=== PATIENT | male | born 1950 | race Caucasian/White ===

== ENCOUNTER 2024-08-10 07:17 | Inpatient (IN) | payer OTHER, MEDICARE ==
[~2024-08-10] VITALS: Ht 175.3 cm; Wt 66.0 kg
[2024-08-10 07:54] LABS: MEAN PLATELET VOLUME 7.1 FL (7.4-10.4); RED CELL DISTRIBUTION WIDTH 13.6 % (11.5-14.5)
[2024-08-10 08:02] LABS: LEUKOCYTE ESTERASE ,URINE TRACE (Neg); NITRITES, URINE NEGATIVE (Neg); OCCULT BLOOD,URINE MODERATE (Neg)
--- NOTE | 2024-08-10 08:07 | Physician Documentation ---
History of Present Illness Chief Complaint: Flank Pain Stated Complaint: ABD PAIN Time Seen by MD: 08:06 OK to notify your PCP?: Yes Source: patient, RN/MD, RN notes reviewed Mode of Arrival: Ambulatory Exam Limitations: no limitations HPI This pleasant 74-year-old states he has been having some right flank pain back pain for about two days. The patient fell about three days ago but did not recall hurting himself and was soft fall. But coincidentally started having severe pain. He does have a history of kidney stones in the past. The patient states his pain is nonradiating not necessarily associated with movement. Denies any dysuria or frequency no radiation of his pain. It is more of an ache pressure type of sensation. Had some difficulty sleeping last night was concerned came in for evaluation. He has been taking some Tylenol for his pain takes a daily aspirin. Patient is otherwise in good health has no other complaints at this time. Medication Reconciliation Allergies: Coded Allergies: No Known Allergies (Unverified , 08/10/24) Past Medical History Past Medical History: Seizures Past Surgical History: abdominal surgery Smoking Status: Former smoker Alcohol Use: Sober Drug Use: none Review of Systems All Other Systems at this time: Reviewed and Negative Physical Exam Vital Signs: RN Vital Signs have been reviewed: Yes, Temperature: 98.7, Source: Temporal, Heart Rate: 85, Respiratory Rate: 15, BP: 132/76, Pulse Oximetry: 97, Weight: 66.200 Oxygen Flow Rate: 0 Physical Exam General: The patient is well developed, well nourished, nontoxic appearing and is in no acute distress. Skin: [place], warm and dry with no rashes. HEENT: Head was normocephalic and atraumatic. Eyes - pupils equal, round, reactive to light and accommodation. Extraocular movements were intact. Conjunctivae were nonicteric. The mouth and oropharynx were clear with moist mucous membranes. Neck: Supple and nontender. There was no jugular venous distention, Chest: Clear to auscultation bilaterally without wheezes, rales or rhonchi. No accessory muscle use. Heart: Rate regular and rhythmic. S1, S2. No murmurs. Palpation of the chest wall was normal. Back: Diffuse right paraspinal lumbar tenderness CVA tenderness mild no point tenderness on the spine Abdomen: Soft, nontender and nondistended. Positive bowel sounds. No guarding or rebound. Extremities: No cyanosis, clubbing or edema. The patient moves all extremities. Pulses were equal and symmetric. Neurologic: Motor sensory grossly intact Psychologic: The patient was oriented to person, place and time. The patient demonstrated appropriate judgement and insight. Progress Progress Note 0950: The case was discussed with Dr. Davila who was informed on the patient and agreed to see him if patient shows signs of decompensation and to give him a call in the evening. 0958: The case was discussed with Dr. Armas who was informed on the patients case and kindly agreed to admission. Results/Orders Reviewed/noted all lab results: Yes Results/Orders Orders - PETER GRIJALVA MD Urinalysis, Cult If Indicated (08/10/24 07:27) Lipase (08/10/24 07:27) CMP (08/10/24 07:27) Completed Orders - PETER GRIJALVA MD Cbc/Diff (08/10/24 07:27) Vital Signs 08/10/24 08/10/24 08/10/24 07:24 07:40 07:41 Temp 98.7 Pulse 90 85 Resp 18 15 15 B/P (MAP) 134/75 132/76 (94) Pulse Ox 97 97 O2 Flow Rate 0 Laboratory Tests Test 08/10/24 07:30 08/10/24 07:45 Urine Comment White Blood Count 11.9 H Red Blood Count 4.17 L Hemoglobin 12.3 L Hematocrit 37.2 L Mean Corpuscular Volume 89.3 Mean Corpuscular Hemoglobin 29.6 Mean Corpuscular Hemoglobin Concent 33.1 Red Cell Distribution Width 13.6 Platelet Count 441 H Mean Platelet Volume 7.1 L Neutrophils (%) (Auto) 77.0 H Lymphocytes (%) (Auto) 9.6 L Monocytes (%) (Auto) 12.1 H Eosinophils (%) (Auto) 0.6 Basophils (%) (Auto) 0.7 Neutrophils # (Auto) 9.2 H Lymphocytes # (Auto) 1.2 Monocytes # (Auto) 1.4 H Eosinophils # (Auto) 0.1 Basophils # (Auto) 0.1 CBC Comment Chemistry Comments Re-Evaluation Re-Evaluation : Re-Evaluation: Improved Progress Patient was seen and examined. Patient is given reassurance. Patient is well appearing comfortable but is having some right flank pain. Patient denies any chills or rigors. Patient's workup showed a leukocytosis with a WBC of 11.9 left shift of 77 neutrophils. Chemistry also had some prerenal dehydration or chronic renal insufficiency. BUN is 28 creatinine is 1.58 GFR is 43. However patient has a urinalysis showing moderate blood with trace leukocyte esterase 3- 10 RBCs 5-10 WBCs which is concerning for urinary tract infection. Cat scans showed obstructive uropathy on the right side. Because of infection and obstructive uropathy patient will be admitted given IV antibiotics. Also received sildenafil to help dilate the muscles at the UVJ and hopefully the stone will pass. I discussed the case with Urology who felt patient should pa ssed the stone and should be managed medically if the patient decompensates he is more than happy to see the patient but does not anticipate that to be the situation. Patient received antibiotics fluids hospitalist was called for admission. Continuous cardiac catheterization technician interpretation shows normal sinus rhythm heart rate 90s, no ectopy, normal, my interpretation. Pulse oximetry monitor interpretation shows normal oxygenation at 97% room air, normal, my interpretation. EKG/XRAY/CT/US/VASC/MRI CT : Impression Exam: CT CT ABDOMEN PELVIS History: ABD PAIN right flank right back pain Comparison Study: None Technique: Multidetector spiral CT of the abdomen was performed from lung bases to pubic symphysis. Imaging was performed without IV contrast. Axial, coronal and sagittal multiplanar reformats were obtained from the axial data set by the technologist. Radiation Dose : 1. Abdomen/Pelvis: CTDIvol 9.2 mGy, DLP 498 mGy*cm. Findings: Evaluation of solid organs is limited due to lack of intravenous contrast use. Lung Bases: Cardiomegaly. Coronary artery calcifications. Vascular calcifications of the aorta. Liver: Hepatic steatosis. Hepatomegaly. Gallbladder and Biliary Tree: Unremarkable Spleen: Unremarkable Pancreas: The pancreas is grossly normal in appearance. Adrenal Glands: Unremarkable Kidneys: Few right renal cysts are present. Left kidney is unremarkable. Mild to moderate right hydroureteronephrosis. Bladder: 0.2 cm stone at the right UVJ likely just entering the bladder. Bowel: The stomach is grossly normal in appearance. Large volume stool in the sigmoid colon. The appendix is not visualized; however, no secondary findings of acute appendicitis identified. Ascites: Absent Lymphadenopathy: No mesenteric, retroperitoneal or periportal lymphadenopathy. Abdominal Wall and Mesentery: Unremarkable. Vasculature: The visualized abdominal aorta is normal in size and caliber. There is extensive atherosclerotic calcification of the aorta and its branches. Evaluation of abdominal and pelvic vessels is limited due to lack of intravenous contrast. Pelvic Organs: Unremarkable Musculoskeletal: No aggressive focal bony lesions, acute fractures or dislocation. IMPRESSION: Mild to moderate right hydroureteronephrosis. 0.2 cm stone at the right UVJ likely just entering the urinary bladder. Large volume stool in the sigmoid colon. Hepatomegaly. Electronically Signed by:ZAHEER GALE MD Date & Time: 08/10/24 0906 Medical Decision Making Additional info obtained from: old records Differential Dx:Considerations: Include: Esophagitis, Gastritis/PUD, Gastroenteritis, GI hemorrhage, Hernia, Hepatitis, Inflammatory BD, Ischemic bowel, Pancreatitis, Urinary obstruction, Urinary tract infection, Urolithiasis, Other Departure Time of Disposition: 09:59 Disposition: 09 ADMITTED INPATIENT Admitted to Inpatient Unit: yes, to hospitalist Impression: Primary Impression: UTI (urinary tract infection) Additional Impressions: Hydronephrosis, right Renal colic Condition: Fair Referrals: NO PRIMARY CARE PROVIDER (PCP) Education Educated: Patient Educated regarding: diagnosis, need for follow up Signature Scribe Signature: Scribed for Peter Grijalva MD by Lana Calderon . 08/10/24 09:12 (progress/ departure) Attestation: The note accurately reflects work and decisions made by me.Peter Grijalva MD 08/10/24 08:07 PETER GRIJALVA MD Aug 10, 2024 08:07 LANA ARIZA Aug 10, 2024 09:11
[2024-08-10 08:08] LABS: CREATININE 1.58 MG/DL (0.60-1.10); TOTAL CARBON DIOXIDE 25.2 MMOL/L (24-32); eCRCL 38 ML/MIN; eGFR 43 ML/MIN
[2024-08-10 08:08] LABS: UA COLLECTION TYPE CLN CATCH MIDSTREAM
[2024-08-10 08:10] LABS: MUCUS STRANDS FEW /LPF (Neg); SQUAMOUS EPITHELIAL CELL,UR FEW /LPF (FEW)
[2024-08-10] MEDS: ketorolac trometh 15mg/ml vial 15 MG/ML ML IV ONE (08:35)
[2024-08-10] MEDS: normal saline 1000ML IV soln IVB ONE (08:35)
--- NOTE | 2024-08-10 09:09 | RADIOLOGY REPORT ---
Exam: CT CT ABDOMEN PELVIS History: ABD PAIN right flank right back pain Comparison Study: None Technique: Multidetector spiral CT of the abdomen was performed from lung bases to pubic symphysis. I maging was performed without IV contrast. Axial, coronal and sagittal multiplanar reformats were obta ined from the axial data set by the technologist. Radiation Dose : 1. Abdomen/Pelvis: CTDIvol 9.2 mGy, DLP 498 mGy*cm. Findings: Evaluation of solid organs is limited due to lack of intravenous contrast use. Lung Bases: Cardiomegaly. Coronary artery calcifications. Vascular calcifications of the aorta. Liver: Hepatic steatosis. Hepatomegaly. Gallbladder and Biliary Tree: Unremarkable Spleen: Unremarkable Pancreas: The pancreas is grossly normal in appearance. Adrenal Glands: Unremarkable Kidneys: Few right renal cysts are present. Left kidney is unremarkable. Mild to moderate right hydr oureteronephrosis. Bladder: 0.2 cm stone at the right UVJ likely just entering the bladder. Bowel: The stomach is grossly normal in appearance. Large volume stool in the sigmoid colon. The appe ndix is not visualized; however, no secondary findings of acute appendicitis identified. Ascites: Absent Lymphadenopathy: No mesenteric, retroperitoneal or periportal lymphadenopathy. Abdominal Wall and Mesentery: Unremarkable. Vasculature: The visualized abdominal aorta is normal in size and caliber. There is extensive athero sclerotic calcification of the aorta and its branches. Evaluation of abdominal and pelvic vessels is limited due to lack of intravenous contrast. Pelvic Organs: Unremarkable Musculoskeletal: No aggressive focal bony lesions, acute fractures or dislocation. IMPRESSION: Mild to moderate right hydroureteronephrosis. 0.2 cm stone at the right UVJ likely just entering the urinary bladder. Large volume stool in the sigmoid colon. Hepatomegaly.
[2024-08-10] MEDS: CefTRIAXone 2gm/D5W 50ml BAG 50 ML IV ONE (09:22)
[2024-08-10] MEDS ORDERED: magnesium sulf-water 2g/50mL 50 ML IV PRN (11:05)
[2024-08-10] MEDS ORDERED: potassium Cl 20 mEq SR tablet PO PRN (11:05)
[2024-08-10] MEDS ORDERED: ondansetron/PF 4mg/2ml inj IV PRN (11:05)
[2024-08-10] MEDS ORDERED: mag hydrox/Alum hydrox/simeth 30ml oral suspension PO PRN (11:05)
[2024-08-10] MEDS ORDERED: magnesium sulf-water 4G/100mL 100 ML IV PRN (11:05)
[2024-08-10] MEDS ORDERED: potassium Cl 40MEQ/1/2NS 520ml 520 ML IV PRN (11:05)
[2024-08-10] MEDS ORDERED: magnesium Cl slow-release 64mg tablet PO PRN (11:05)
[2024-08-10] MEDS: normal saline 1000ml 1,000 ML IV SCH (11:33)
--- NOTE | 2024-08-10 13:59 | HISTORY AND PHYSICAL-Residence ---
History & Physical Providers to CC Resident Creating Document: KADI CONNOR RES ~ History of Present Illness Reason for Admit\Complaint: Pain in the right flank for 3 days History of Present Illness This is a 74 year-old male patient with a history of 3 days of severe right flank pain that worsened today. The pain is constant and associated with urinary urgency, without radiation, not improved with Tylenol. Patient denies fever, chills, dysuria, nausea, vomiting or diarrhea, with no other complaints. At this moment patient does not have any pain after being medicated. I have discussed that advanced care planning with the patient, who decides to be a DNR. The patient is retired and lives alone, able to perform after activity of the life. Physical exam: General: The patient is well developed, well nourished, nontoxic appearing and is in no acute distress. Skin: [place], warm and dry with no rashes. HEENT: Head was normocephalic and atraumatic. Eyes - pupils equal, round, reactive to light and accommodation. Extraocular movements were intact. Conjunctivae were nonicteric. The mouth and oropharynx were clear with moist mucous membranes. Neck: Supple and nontender. There was no jugular venous distention, Chest: Clear to auscultation bilaterally without wheezes, rales or rhonchi. No accessory muscle use. Heart: Rate regular and rhythmic. S1, S2. No murmurs. Palpation of the chest wall was normal. Back: Diffuse right paraspinal lumbar tenderness. CVA tenderness elicited on physical examination. Abdomen: Soft, nontender and mildly distended. Positive bowel sounds. No guarding or rebound. Extremities: No cyanosis, clubbing or edema. The patient moves all extremities. Pulses were equal and symmetric. Neurologic: Motor sensory grossly intact Psychologic: The patient was oriented to person, place and time. The patient demonstrated appropriate judgement and insight. Allergies: Coded Allergies: No Known Allergies (Unverified , 08/10/24) Past Medical History Past Medical History Seizures in the past - now controlled with medication Past Surgical History Surgical History Comment Splenectomy about 25 years ago Past Social History Smoking: Quit greater than 1 year (Patient used to smoke 2 packs a day and consume alcohol daily for approximately 30 years, stopped 25 years ago) Alcohol Use: None Drug Use: None Lives with: Alone Lives In: Home Occupation: retired ROS All Other Systems: Reviewed and Negative Gastrointestinal: Reports: abdominal pain, diarrhea (occasional diarrhea, not present at the moment) Genitourinary: Reports: frequency Exam Vitals: Vital Signs Date Time Temp Pulse Resp B/P (MAP) Pulse Ox O2 Delivery O2 Flow Rate FiO2 08/10/24 12:49 68 15 129/80 (96) 98 08/10/24 07:24 98.7 0 Diagnostic Data Last Recorded Lab Results: 08/10/24 0745 08/10/24 0745 Counseling Services Smoking & Tobacco Cessation: 3-10 Minutes (Patient instructed to abstainfrom tobacco and alcohol consumption) Advance Care Planning Advanced Care plannin - 30 Minutes (Advanced care planning discussed with the patient that decides to be DNR) Problems: (1) Hydronephrosis, right Status: Acute (2) UTI (urinary tract infection) Status: Acute Assessment & Plan: Distal ureterolithiasis 0.2 stone at the UVJ entering the bladder Case discussed it with Urology in the emergency department, no procedure recommended at this time We will start tamsulosin 0.4 mg daily Pain medication p.r.n. Acute kidney injury Right hydronephrosis due to ureteral stone BUN 28, creatinine 1.58 Hydration with NS at 100 mL/hr Monitor renal function Urinary tract infection Urine positive for occult blood, leukocyte esterase and WBC Ceftriaxone 1 g daily Follow-up urine culture Code Status: DNR DVT prophylaxis: Heparin Analgesia/sedation: Morphine Line/tube: PIV GI prophylaxis: None Nutrition: Regular diet Prognosis: Guarded Disposition: Continue medical management. Date of Service: Aug 10, 2024 Billing Provider: MESHA RAVI MD Common Visit Codes: [id number] INP/OBS CARE (HIGH) Secondary Visit Codes: [id number] CARE PLAN 30 MINUTES Problem Qualifiers (1) UTI (urinary tract infection): Urinary tract infection type: acute pyelonephritis Qualified Codes: N10 - Acute pyelonephritis KADI CONNOR, JOSE Aug 10, 2024 13:59 MESHA RAVI MD Aug 11, 2024 17:48
[2024-08-10 17:10] VITALS: BP 171/82; PULSE 68; RESP 18; TEMP 97.7; O2SAT 100
[2024-08-10] MEDS ORDERED: PHEN100C4 PO (17:14)
[2024-08-10 17:15] VITALS: BP 171/82; PULSE 68; RESP 18; TEMP 97.7; O2SAT 100
[2024-08-10 18:00] VITALS: BP 174/82; PULSE 68; RESP 18; TEMP 97.7; O2SAT 100
[2024-08-10] MEDS: docusate sod 100mg capsule PO SCH (20:00)
[2024-08-10] MEDS: K and/or MAG REPLACEMENT MC SCH (20:00)
[2024-08-10 20:10] VITALS: RESP 18
[2024-08-10] MEDS: heparin, porcine 5000 units/ml vial SQ SCH (21:11)
[2024-08-10 22:00] VITALS: BP 132/68; PULSE 79; RESP 16; TEMP 98.2; O2SAT 96
[2024-08-11 04:59] LABS: MEAN PLATELET VOLUME 7.5 FL (7.4-10.4); RED CELL DISTRIBUTION WIDTH 13.7 % (11.5-14.5)
[2024-08-11 05:20] LABS: CREATININE 1.63 MG/DL (0.60-1.10); TOTAL CARBON DIOXIDE 25.4 MMOL/L (24-32); eCRCL 37 ML/MIN; eGFR 42 ML/MIN
[2024-08-11 06:00] VITALS: BP 149/59; PULSE 88; RESP 16; TEMP 98.4; O2SAT 95
[2024-08-11] MEDS: CefTRIAXone/D5W-Rocephin 1gm 50 ML IV SCH (08:32)
[2024-08-11 10:00] VITALS: BP 162/77; PULSE 85; RESP 18; TEMP 98; O2SAT 98
[2024-08-11 11:48] VITALS: BP 150/72; PULSE 87; O2SAT 99
--- NOTE | 2024-08-11 12:13 | PROGRESS NOTE- Residence ---
Progress Note - Resident Providers to CC Resident Creating Document: KADI CONNOR RES ~ Antibiotic Timeout Antibiotic Ordered?: Yes If Yes, Indications: UTI If Yes, Anticipated Duration?: 5 days Subjective Patient examined at the bedside. Patient still complains of right flank pain, but no dysuria or fullness sensation. Patient is partially tolerating diet, however he did not have any bowel movement since admission. Patient also states having symptoms of dyspepsia after eating food. No other complaints at this moment. Objective Vital Signs Date Time Temp Pulse Resp B/P (MAP) Pulse Ox O2 Delivery O2 Flow Rate FiO2 08/11/24 11:48 87 150/72 (98) 99 Room Air 08/11/24 10:56 18 08/11/24 10:00 98.0 08/10/24 20:10 0.0 Result Diagram: 08/11/2442508/11/24425 Physical exam: General: The patient is well developed, well nourished, nontoxic appearing and is in no acute distress. Skin: [place], warm and dry with no rashes. HEENT: Head was normocephalic and atraumatic. Eyes - pupils equal, round, reactive to light and accommodation. Extraocular movements were intact. Conjunctivae were nonicteric. The mouth and oropharynx were clear with moist mucous membranes. Neck: Supple and nontender. There was no jugular venous distention, Chest: Clear to auscultation bilaterally without wheezes, rales or rhonchi. No accessory muscle use. Heart: Rate regular and rhythmic. S1, S2. No murmurs. Palpation of the chest wall was normal. Back: Diffuse right paraspinal lumbar tenderness, less than things than yesterday. CVA tenderness is still elicited on physical examination. Abdomen: Soft, nontender and mildly distended. Positive bowel sounds. No guarding or rebound. Extremities: No cyanosis, clubbing or edema. The patient moves all extremities. Pulses were equal and symmetric. Neurologic: Motor sensory grossly intact Psychologic: The patient was oriented to person, place and time. The patient demonstrated appropriate judgement and insight. Assessment Assessment Distal ureterolithiasis 0.2 stone at the UVJ entering the bladder Case discussed it with Urology in the emergency department, no procedure recommended at this time Started tamsulosin 0.4 mg daily Pain medication p.r.n. 08/11/[address] Davila Ordered a new pelvis CT: Redemonstration of 2 mm calculus of the right ureterovesicular junction.Extensive right retroperitoneal edema and stranding which is increased from the previous examination which could represent sequela of pyelonephritis, pelvic calyceal rupture secondary to the underlying right renal obstruction. We will keep tamsulosin, hydration and antibiotics We will follow-up with urology Acute kidney injury Right hydronephrosis due to ureteral stone BUN 28, creatinine 1.58 Hydration with NS at 100 mL/hr Monitor renal function 08/11/2024 BUN 22, creatinine 1.63, GFR 42 Keep IV hydration Patient instructed to increase his water intake Avoid nephrotoxic medications Urinary tract infection Urine positive for occult blood, leukocyte esterase and WBC Ceftriaxone 1 g daily Follow-up urine culture 08/11/2024 Urine culture no growth after 1 day We will keep the ceftriaxone 1 g daily Constipation Large volume stool in the sigmoid colon evidenced in the previous CT Patient denies any bowel movement since admission Ordered Soap enema today Avoid overuse of opioid medication New onset hypertension No previous history of hypertension Patient with multiple blood pressure measures over 160/80 mmHg We will start on hydrochlorothiazide 12.5 mg daily Hydralazine p.r.n. Code Status: DNR DVT prophylaxis: Heparin Analgesia/sedation: Morphine Line/tube: PIV GI prophylaxis: Pantoprazole Nutrition: Regular diet Prognosis: Guarded Disposition: Continue medical management. Date of Service: Aug 11, 2024 Billing Provider: MESHA RAVI MD Common Visit Codes: [id number] INP/OBS CARE(HIGH) KADI CONNOR, RES Aug 11, 2024 12:13 MESHA RAVI MD Aug 11, 2024 17:49
--- NOTE | 2024-08-11 14:30 | RADIOLOGY REPORT ---
Indication: 0.2 cm stone rt UV junction Technique: CT axial images of the pelvis are obtained without contrast. Coronal and sagittal reforma ts were obtained. Radiation Dose Information: CTDI volume is 10.3 mGy. Dose-length product is 329 mGy*cm Comparison: 08/10/2024 FINDINGS: Extensive retroperitoneal edema and stranding noted. 2 mm calculus at the right ureterovesicular junc tion, increased from previous examination. Bladder partially distended. Postsurgical changes sigmoid colon. Moderate to large volume stool in the rectosigmoid colon. Abdominal aortic atherosclerotic disease. Small fat containing right inguinal hernia. No aggressive osseous process. [id number] lower lumbar degenerative disc disease. IMPRESSION: Redemonstration of 2 mm calculus of the right ureterovesicular junction. Extensive right retroperitoneal edema and stranding which is increased from the previous examination which could represent sequela of pyelonephritis, pelvic calyceal rupture secondary to the underlying right renal obstruction. Recommend urology consultation for further management. Redemonstration of moderate to large volume stool in the rectosigmoid colon with postsurgical changes .
[2024-08-11 18:00] VITALS: BP 142/70; PULSE 90; RESP 13; TEMP 97.9; O2SAT 97
[2024-08-11] MEDS: phenytoin sod ER 100mg capsule PO SCH (20:32)
[2024-08-11] MEDS: magnesium hydroxide 30ml (MOM) UD suspension PO PRN (20:35)
[2024-08-11 22:00] VITALS: BP 151/73; PULSE 89; RESP 16; TEMP 100; O2SAT 96
[2024-08-12] VITALS (21 sets, daily range): BP systolic 85–134; BP diastolic 30–74; PULSE 60–85; RESP 13–18; TEMP 97.8–99.3; O2SAT 92–99
[2024-08-12 04:35] LABS: MEAN PLATELET VOLUME 7.2 FL (7.4-10.4); RED CELL DISTRIBUTION WIDTH 13.5 % (11.5-14.5)
[2024-08-12 04:46] LABS: CREATININE 1.20 MG/DL (0.60-1.10); TOTAL CARBON DIOXIDE 28.8 MMOL/L (24-32); eCRCL 51 ML/MIN; eGFR 59 ML/MIN
[2024-08-12 07:00] LABS: LYMPHOCYTES % (MANUAL) 15.0 % (21-51); MONOCYTES % (MANUAL) 18.0 % (2-12); NEUTROPHILS % (MANUAL) 67.0 % (42-75)
[2024-08-12 07:01] LABS: PLATELET ESTIMATE NORMAL
[2024-08-12] MEDS: pantoprazole 40mg Tablet.DR PO SCH (08:10)
--- NOTE | 2024-08-12 11:56 | PROGRESS NOTE- Residence ---
Progress Note - Resident Providers to CC Resident Creating Document: KADI CONNOR RES ~ Antibiotic Timeout Antibiotic Ordered?: Yes If Yes, Indications: UTI Subjective Patient examined at the bedside. Patient states complete improvement of the previous right flank pain, without any dysuria or fullness sensation. Patient is NPO for an urological procedure this afternoon with Dr. Davila but was tolerating regular diet well. Patient had an isolated episode of diarrhea this morning, without abdominal pain, nausea or vomiting. No other complaints at this moment. Objective Vital Signs Date Time Temp Pulse Resp B/P (MAP) Pulse Ox O2 Delivery O2 Flow Rate FiO2 08/12/24 10:42 Room Air 0.0 08/12/24 10:00 98.2 83 16 102/59 (73 97 Result Diagram: 08/12/2442208/12/24422 Physical exam: General: The patient is well developed, well nourished, nontoxic appearing and is in no acute distress. Skin: Bend, warm and dry with no rashes. HEENT: Head was normocephalic and atraumatic. Eyes - pupils equal, round, reactive to light and accommodation. Extraocular movements were intact. Conjunctivae were nonicteric. The mouth and oropharynx were clear with moist mucous membranes. Neck: Supple and nontender. There was no jugular venous distention, Chest: Clear to auscultation bilaterally without wheezes, rales or rhonchi. No accessory muscle use. Heart: Rate regular and rhythmic. S1, S2. No murmurs. Palpation of the chest wall was normal. Back: Diffuse right paraspinal lumbar tenderness, less than things than yesterday. CVA tenderness is still elicited on physical examination. Abdomen: Soft, nontender and mildly distended. Positive bowel sounds. No guarding or rebound. Extremities: No cyanosis, clubbing or edema. The patient moves all extremities. Pulses were equal and symmetric. Neurologic: Motor sensory grossly intact Psychologic: The patient was oriented to person, place and time. The patient demonstrated appropriate judgement and insight. Assessment Assessment Distal ureterolithiasis 0.2 stone at the UVJ entering the bladder Case discussed it with Urology in the emergency department, no procedure recommended at this time Started tamsulosin 0.4 mg daily Pain medication p.r.n. 08/11/[address] Davila Ordered a new pelvis CT: Redemonstration of 2 mm calculus of the right ureterovesicular junction.Extensive right retroperitoneal edema and stranding which is increased from the previous examination which could represent sequela of pyelonephritis, pelvic calyceal rupture secondary to the underlying right renal obstruction. We will keep tamsulosin, hydration and antibiotics We will follow-up with urology 08/12/2024 Patient is scheduled for procedure with Dr. Davila at 1:00 p.m. in the OR We will keep tamsulosin, hydration and antibiotics We will follow-up after the procedure Acute kidney injury Right hydronephrosis due to ureteral stone BUN 28, creatinine 1.58 Hydration with NS at 100 mL/hr Monitor renal function 08/11/2024 BUN 22, creatinine 1.63, GFR 42 Continue IV hydration Patient instructed to increase his water intake Avoid nephrotoxic medications 08/12/2024 BUN 14, creatinine 1.2, GFR 59 Continue IV hydration Urinary tract infection 08/10/2024 Urine positive for occult blood, leukocyte esterase and WBC Ceftriaxone 1 g daily Follow-up urine culture 08/11/2024 Urine culture: no growth after 1 day We will continue the ceftriaxone 1 g daily 08/12/2024 Urine culture: No growth after 2 days We will continue ceftriaxone 1 g daily for now Constipation with intermittent diarrhea 08/11/2024 Large volume stool in the sigmoid colon evidenced in the previous CT Patient denies any bowel movement since admission Ordered Soap enema today Avoid overuse of opioid medication 08/12/2024 We will hold the enema today New onset hypertension 08/10/2024 No previous history of hypertension Patient with multiple blood pressure measures over 160/80 mmHg We will start on hydrochlorothiazide 12.5 mg daily Hydralazine p.r.n. 08/12/2024 Blood pressure stabilized since yesterday after better pain control Patient will need to follow up with PCP after discharge Code Status: DNR DVT prophylaxis: Heparin Analgesia/sedation: Morphine Line/tube: PIV GI prophylaxis: Pantoprazole Nutrition: Regular diet Prognosis: Guarded Disposition: Probable he will be discharged home after the urologic procedure Date of Service: Aug 12, 2024 Billing Provider: MESHA RAVI MD Common Visit Codes: [id number] INP/OBS CARE(HIGH) KADI CONNOR, JOSE Aug 12, 2024 11:56 MESHA RAVI MD Aug 12, 2024 17:24
[2024-08-12] MEDS ORDERED: iohexol 300 MG/1 ML 50ml polymer ONE (12:15)
[2024-08-12] MEDS ORDERED: morphine 4 MG/ML inj SYRINge IV PRN (12:50)
[2024-08-12] MEDS ORDERED: ondansetron/PF 4mg/2ml inj IV PRN (12:50)
[2024-08-12] MEDS ORDERED: hydrALAZINE 20mg/ml inj. IV PRN (12:50)
[2024-08-12] MEDS ORDERED: fentaNYL/PF 50MCG/1 ML 2ML syringe IV PRN ×2 (12:50)
[2024-08-12] MEDS ORDERED: labetalol 20mg/4ml (5mg/ml) syringe IV PRN (12:50)
[2024-08-12] MEDS ORDERED: fentaNYL/PF 50MCG/1 ML 2ML syringe ONE (12:52)
[2024-08-12] MEDS ORDERED: LIDOcaine 2% (20mg/ml) 5ml vial ONE (12:53)
[2024-08-12] MEDS ORDERED: dexamethasone sod phosphate 4mg/ml inj. ONE (12:53)
[2024-08-12] MEDS ORDERED: ondansetron/PF 4mg/2ml inj ONE (12:53)
[2024-08-12] MEDS ORDERED: midazolam 1 mg/ML 2ml injection ONE (12:53)
[2024-08-12] MEDS ORDERED: propofol inj 20 ML IV ONE (12:53)
--- NOTE | 2024-08-12 13:20 | CONSULTATION REPORT ---
History of Present Illness Providers to CC ~ Reason for Admit\Admit Dx: Pain in the right flank for 3 days History of Present Illness 74-year-old white male admitted for management of severe left flank and abdominal pain. CT images demonstrated a 2 mm right ureterovesicular junction stone with [id number] proximal hydronephrosis. This same CT scan also demonstrated an immense amount of stool throughout the colon. This stool appeared to have been quite chronic as it even had a calcific shell around it. Because the patient had a stone nobody even care to address this issue. I asked Dr. Dawn to treat the patient's constipation after which the patient had two bowel movements. The patient now states that his abdominal pain has completely resolved and he only has mild left flank pressure. Allergies: Coded Allergies: No Known Allergies (Unverified , 08/10/24) Home Medications Home Medications Active Reported Dilantin (Phenytoin Sodium Extended) 100 Mg Capsule 3 Cap PO HS Past Medical History Medical History Comment No genitourinary history. Past Surgical History Surgical History Comment No genitourinary surgeries. Past Family History Family History Comment Noncontributory. Past Social History Social History Comment Denies substance abuse. Physical Exam Last Vital Signs Recorded: RN Vital Signs have been reviewed: Yes, Temperature: 99.3, Source: Oral, Heart Rate: 85, Respiratory Rate: 15, BP: 134/74, Pulse Oximetry: 97, Weight: 66.000 General Appearance: no apparent distress EENT: PERRL/EOMI Neck: normal inspection Respiratory: normal breath sounds, no respiratory distress Chest: no accessory muscle use Cardiovascular: normal peripheral pulses Gastrointestinal: normal palpation Rectal: deferred Back: no CVA tenderness Extremities: normal range of motion Neurologic: oriented x4 Psychiatric: normal mood/affect Skin: normal color Lymphatic: no adenopathy Review of Systems ROS ROS Comments: Normal 12 system review. Results Diagram Lab Result Diagram: 08/12/24 0423 08/12/24 0423 Assessment/Plan Additional Plan The patient has a tiny right distal ureteral stone with ongoing left flank pressure. After treatment for his constipation his abdominal pain has completely resolved. The patient wished to move forward with removal of his stone in order to completely recover from this experience. I suggested right ureteroscopic laser lithotripsy with stent placement. I described the procedure in detail along with the risks and benefits of such and the patient agreed to proceed with surgery. YOVANA JETT MD Aug 12, 2024 13:20
[2024-08-12] MEDS ORDERED: acetaminophen 1,000mg/100ml IV 100 ML IV ONE (13:39)
--- NOTE | 2024-08-12 13:54 | OPERATIVE REPORT ---
Operative Report Providers to ~ Date of Procedure: Aug 12, 2024 Pre-Operative Diagnosis: Hydronephrosis, nephrolithiasis, UTI Post-Operative Diagnosis SAME as PRE-Op Procedure Performed One. Right retrograde pyelography. Two. Right diagnostic ureteroscopy. 3. Right ureteral stent placement with tether. 4. Fluoroscopy with interpretation less than 1 hour. Surgeon: Arnav Jett MD Marketing Technology Coordinator None. Anesthesiologist: Meng Rosenthal Type of Anesthesia: General Findings: Fluoroscopic findings: Right retrograde pyelography demonstrated a normal ureteral course and caliber with a without any fixed filling defects or upper tract abnormalities. There was no hydronephrosis. Complications None. Prosthetics\Implants used: Six Australian by 24 cm tethered ureteral stent. Estimated Blood Loss: None. Specimen Removed: None. Description of Procedure: The patient was under the effects of general anesthesia and prepped and draped in sterile fashion. The urethra was entered with a 21 Australian scope and we appreciated mild lateral lobe enlargement, and a normal bladder with orthotopic ureteral orifices. There were no stones in the bladder or at the ureteral orifice itself at the orifice to demonstrate moderate erythema. The right orifice was cannulated and retrograde pyelography demonstrated the above- mentioned findings. A wire was advanced into the upper tract and pinned to the patient's drapes. Semi-rigid ureteroscopy was then performed. Two wires had to be used and a train tracking technique was employed in order to enter the ureteral orifice which was somewhat stenotic. Once within the orifice the entire ureter was examined up to the proximal ureter and no stones were identified. We offloaded the ureteroscope and backloaded our wire onto our cystoscope and used this wire to advance and deploy a 6 Australian by 24 cm ureteral stent and we appreciate good coiling within the renal pelvis and bladder following deployment. The stent tether was then adhered to the patient's phallus using Steri-Strips. This marked the end of the procedure. Counts repoted as correct: Yes X-Ray findings: No Foreign body ARNAV JETT MD Aug 12, 2024 13:54
[2024-08-12] MEDS: ringers solution, lacted 1,000 ML IV SCH (20:23)
[2024-08-13 04:54] LABS: MEAN PLATELET VOLUME 7.5 FL (7.4-10.4); RED CELL DISTRIBUTION WIDTH 13.6 % (11.5-14.5)
[2024-08-13 05:17] LABS: CREATININE 0.91 MG/DL (0.60-1.10); TOTAL CARBON DIOXIDE 28.6 MMOL/L (24-32); eCRCL 66 ML/MIN; eGFR 81 ML/MIN
[2024-08-13 06:17] VITALS: BP 122/65; PULSE 64; RESP 18; TEMP 97.8; O2SAT 97
[2024-08-13] MEDS: potassium Cl 20 mEq SR tablet PO PRN (09:15)
[2024-08-13] MEDS ORDERED: ACET-1008 PO (10:08)
[2024-08-13] MEDS ORDERED: CIPR-202 PO (10:09)
--- NOTE | 2024-08-13 10:15 | DISCHARGE SUMMARY-Residence ---
Discharge Summary Providers to CC Resident Creating Document: KADI CONNOR RES ~ Discharge Summary Admission Diagnosis: Hydronephrosis, nephrolithiasis, UTI Hospital Course DATE OF ADMISSION: 08/10/2024 DATE OF DISCHARGE: 08/13/2024 Lab results Hemoglobin 10.2 WBC 8.6 Platelet count 334 Sodium 140 Potassium 3.4 BUN [address] pelvis on August 10 Mild to moderate right hydroureteronephrosis. 0.2 cm stone at the right UVJ likely just entering the urinary bladder. Large volume stool in the sigmoid colon. Hepatomegaly. CT pelvis on August 11 Redemonstration of 2 mm calculus of the right ureterovesicular junction. Extensive right retroperitoneal edema and stranding which is increased from the previous examination which could represent sequela of pyelonephritis, pelvic calyceal rupture secondary to the underlying right renal obstruction. Recommend urology consultation for further management. Redemonstration of moderate to large volume stool in the rectosigmoid colon with postsurgical changes. Discharge Diagnosis\Comment: Nephrolithiasis, acute kidney injury Operations\Procedures: Right ureteroscopic laser lithotripsy with stent placement Consultants: Dr. Davila Complications: None Condition on DC: Stable New Medications: Ciprofloxacin HCl (Ciprofloxacin HCl) 500 Mg Tab 1 TAB PO BID for Urinary tract infection for 5 Days, #10 TAB Continued Medications: Acetaminophen (Tylenol) 325 Mg Tablet 650 MG PO Q6H PRN PAIN PRN for pain for 5 Days, #30 TAB Phenytoin Sodium Extended (Dilantin) 100 Mg Capsule 3 CAP PO HS, CAP 0 Refills Discharge Summary: This is a 74 year-old male patient with a history of 3 days of severe, constant right flank pain associated with urinary urgency, without radiation, not improved with Tylenol. Pelvis CT demonstrated 2 mm stone in the ureterovesical junction with associated hydronephrosis and acute kidney injury. Patient denied fever, chills, dysuria, nausea, vomiting or diarrhea, with no other complaints. Patient was treated with ceftriaxone, tamsulosin and aggressive hydration, without success. Repeated pelvis CT was ordered due to patient's persistent flank pain and show similar findings from the last image. Urology was consulted and recommended right ureteroscopic laser lithotripsy with state placement for which the patient underwent without any complication, with resolution of his symptoms and complete recovery of kidney function. Additionally, the patient has chronic diarrhea with intermittent constipation, possibly intensifying his pain. Today the patient is asymptomatic and stable to be discharged with outpatient follow-up as below. At the moment of discharge the patient had the following physical exam: General: The patient is well developed, well nourished, nontoxic appearing and is in no acute distress. Skin: Bandana, warm and dry with no rashes. HEENT: Head was normocephalic and atraumatic. Eyes - pupils equal, round, clark ctive to light and accommodation. Extraocular movements were intact. Conjunctivae were nonicteric. The mouth and oropharynx were clear with moist mucous membranes. Neck: Supple and nontender. There was no jugular venous distention, Chest: Clear to auscultation bilaterally without wheezes, rales or rhonchi. No accessory muscle use. Heart: Rate regular and rhythmic. S1, S2. No murmurs. Palpation of the chest wall was normal. Back: Minimal right paraspinal lumbar tenderness, without CVA tendernes. Abdomen: Soft, nontender and mildly distended. Positive bowel sounds. No guarding or rebound. Extremities: No cyanosis, clubbing or edema. The patient moves all extremities. Pulses were equal and symmetric. Neurologic: Motor sensory grossly intact Psychologic: The patient was oriented to person, place and time. The patient demonstrated appropriate judgement and insight. Genitalia: Presence of stent tether, without any discharge from the urethra. The patient was discharged with the following instructions - Please, remove the strings from your penis next Friday (August 16) at your home. If you are unconfortable removing by yourself, you can go to an urgent care. - You will be contacted from Dr. Davila office for Urology follow-up - Follow-up with your PCP in 2 weeks - Take ciprofloxacin 500mg twice a day for 5 days - Take Tylenol p.r.n. - Drink plenty of water - Come back to the ED in case of severe pain, blood in urine, persistent fever, chest pain, shortness of breath or any red flag. *Problems/Diagnosis: (1) Hydronephrosis, right Status: Acute (2) UTI (urinary tract infection) Status: Acute Total Time Spent on D/C: Up to 30 Minutes Date of Service: Aug 13, 2024 Billing Provider: MESHA RAVI MD Common Visit Codes: 69458-AWK/[id number] DISCH DAY >30min Problem Qualifiers (1) UTI (urinary tract infection): Urinary tract infection type: acute pyelonephritis Qualified Codes: N10 - Acute pyelonephritis KADI CONNOR, RES Aug 13, 2024 10:14 MESHA RAVI MD Aug 14, 2024 18:18
[2024-08-13 11:58] VITALS: BP 133/68; PULSE 73; RESP 16; TEMP 98; O2SAT 97
[2024-08-13 14:07] VITALS: RESP 16; O2SAT 95
[2024-08-14] MEDS ORDERED: CIPR-202 PO (07:00)
[2024-08-14] MEDS ORDERED: PRED20TA PO (07:00)
== END 2024-08-13 13:30 | disposition home or self-care (01) | DRG 661 ==
LOC: ER 07:18 → ED HOLD 10:03 → SUR 3N 17:15
PROVIDERS: ADMIT Internal Medicine; ATTEND Internal Medicine
PROC: BT1D1ZZ Fluoroscopy of Right Kidney, Ureter and Bladder using Low Osmolar Contrast (ICD-10-PCS; 2024-08-12)
PROC: 0T768DZ Dilation of Right Ureter with Intraluminal Device, Via Natural or Artificial Opening Endoscopic (ICD-10-PCS; principal; 2024-08-12 13:15)
DX: N13.6 Pyonephrosis (principal); K59.00 Constipation, unspecified; N17.9 Acute kidney failure, unspecified; Z66 Do not resuscitate; I10 Essential (primary) hypertension; Z87.891 Personal history of nicotine dependence
CPT/HCPCS: 36415; 72192; 74176; 74420; 76000; 80048; 80053; 81001; 82948; 83605; 83690; 83735; 84145; 85007; 85025; 85651; 87040; 87081; 87088; 96365; 97161; 97530; 99285; A4618; A7000; C1750; C1758; C1769; C2617; G0378; J0131; J0696; J1100; J1644; J1885; J2003; J2250; J2270; J2405; J2704; J3010; J7030; Q9967